=== PATIENT | female | born 1990 | race Hispanic/Latino ===

== ENCOUNTER 2018-04-28 20:57 | Emergency (ER) | payer OTHER ==
[2018-04-28 21:11] VITALS: BP 113/76; PULSE 71; RESP 16; TEMP 98.6; O2SAT 98
[2018-04-28] MEDS ORDERED: Naproxen 500 MG TAB PO STA (22:22)
--- NOTE | 2018-04-28 22:26 | ED PDOC ---
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 Reports no numbness, other injury, knee pain or ankle pain. Has no other complaints. Past Medical History Vital Signs: Last Vital Signs Temp 98.6 F 04/28/18 21:08 Pulse 71 04/28/18 21:08 Resp 16 04/28/18 21:08 BP 113/76 04/28/18 21:08 Pulse Ox 98 04/28/18 21:08 - Family History Family History: States: No Known Family Hx - Home Medications Home Medications: Ambulatory Orders Medication Instructions Recorded Cyclobenzaprine [Cyclobenzaprine 10 mg PO TID PRN #15 tab 04/28/18 HCl] Naproxen 500 mg PO BID PRN #20 tablet 04/28/18 - Allergies Allergies/Adverse Reactions: Allergies Allergy/AdvReac Type Severity Reaction Status Date / Time No Known Allergies Allergy Verified 04/28/18 21:11 Review of Systems Constitutional: Negative for: Fever, Malaise Musculoskeletal: Positive for: Leg Pain. Negative for: Neck Pain, Back Pain Skin: Negative for: Rash, Lesions Physical Exam - Reviewed Vital Signs Reviewed: Yes - Physical Exam Appears: Positive for: Well, Non-toxic, In Acute Distress (+mild painful distress) Skin: Positive for: Normal Color, Warm, Dry Pulses-Dorsalis Pedis (L): 2+ Extremity: Positive for: Normal ROM, Calf Tenderness (+Tenderness to the proximal left calf, Achilles tendon intact left ankle, able to plantarflex and dorsiflex the foot), Capillary Refill (<2 sec). 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 Negative for: Motor/Sensory Deficits - ECG O2 Sat by Pulse Oximetry: 98 Medical Decision Making Medical Decision Making: Plan : - CT LLE w/o contrast - Naprosyn PO - Flexeril PO - Uhcg Uhcg (-) CT LLE w/o contrast : FINDINGS: There is no fracture or malalignment. There is no focal bony lesion. There is mild ankle fat stranding, suggesting edema/inflammation. IMPRESSION: 1. No evidence of an acute bony abnormality. 2. There is mild ankle fat stranding, suggesting edema/inflammation. Note: A CT examination is not sensitive in detecting tendon injury. MRI examination is the study of choice. Dictated and Authenticated by: Aki Ames MD 04/28/2018 11:20 PM Eastern Time ([place] & [place]) Diagnostic results d/w the patient in great detail. Dx of muscle strain d/w the patient. Advised that a tendon rupture was not ruled out today and that she will need to follow up with ortho without fail for outpatient MRI. Orthoglass short leg splint applied by ANDREW VALENZUELA intact post splint application. Instructed on crutch walking. Based on history, exam and diagnostic results plan will be for outpatient follow up. Advised to follow up with ortho referral in 1-2 days without fail. Advised to rest, ice and elevate, to take medication as prescribed. Return to the emergency room at any time for any new or worsening symptoms. Patient states she fully agrees with and understands discharge instructions. States that she agrees with the plan and disposition. Verbalized and repeated discharge instructions and plan. I have given the patient opportunity to ask any additional questions. Disposition - Clinical Impression Clinical Impression: Muscle strain, Pain of left calf - Patient ED Disposition Is Patient to be Admitted: No Counseled Patient/Family Regarding: Studies Performed, Diagnosis, Need For Followup, Rx Given - Disposition Referrals: Hemanth West III, MD [Staff Provider] - Disposition: Routine/Home Disposition Time: 23:40 Condition: STABLE Additional Instructions: Thank you for letting us take care of you today. You were treated for L calf pain, muscle strain. The emergency medical care you received today was directed at your acute symptoms. If you were prescribed any medication, please fill it and take as directed. It may take several days for your symptoms to resolve. Rest, ice and elevate. Return to the Emergency Department if your symptoms worsen, do not improve, or if you have any other problems. Please contact your doctor in 2 days for re-evaluation and follow up / or call one of the physicians/clinics you have been referred to that are listed on the Patient Visit Information form that is included in your discharge packet. Bring any paperwork you were given at discharge with you along with any medications you are taking to your follow up visit. Our treatment cannot replace ongoing medical care by a primary care provider (PCP) outside of the emergency department. Thank you for allowing the [facility] team to be part of your care today. If you had a CT scan: A Radiologist will review the ED reading if any change in treatment is needed we will contact you. Prescriptions: Cyclobenzaprine [Cyclobenzaprine HCl] 10 mg PO TID PRN #15 tab PRN Reason: Muscle Spasm Naproxen 500 mg PO BID PRN #20 tablet PRN Reason: Pain, Moderate (4-7) Instructions: Muscle Strain Forms: [employer] ([place]), [facility] ED School/Work Excuse - PA / MATERIALS ANALYST / Resident Statement MD/DO has reviewed & agrees with the documentation as recorded.
[2018-04-28] MEDS ORDERED: Naproxen 500 MG TAB PO ONE (22:45)
--- NOTE | 2018-04-29 10:09 | CT ---
Date of service: 04/28/2018 PROCEDURE: CT LEFT LOWER EXTREMITY WITHOUT CONTRAST, TIBIA AND FIBULA HISTORY: L calf pain, r/o tendon rupture COMPARISON: None available. TECHNIQUE: Helical CT of the left tibia and fibula has been performed from the distal femur to the proximal ankle. Intravenous contrast was not administered as per referring physician request. Reformatted datasets provided in multiple planes. Radiation dose:Total exam DLP = 523.19 mGy-cm. This CT exam was performed using one or more of the following dose reduction techniques: Automated exposure control, adjustment of the mA and/or kV according to patient size, and/or use of iterative reconstruction technique. FINDINGS: The tibia and fibula are intact without fracture or destructive bony lesion identified. No periosteal changes are identified at this time. Local musculature including the gastrocnemius muscle appears unremarkable in overall density in this noncontrast CT examination, which limits evaluation of the musculature. No suspicious density changes are appreciate throughout the visualized anterior posterior compartment musculature throughout the lower leg and limited medial ankle soft tissue edema is identified which is nonspecific appearing. There is no displaced rupture of the Achilles tendon as imaged. MRI is significantly more sensitive in evaluation of ligaments tendons and remaining soft tissues and should be considered as clinically warranted. IMPRESSION: 1. No fracture, subluxation, dislocation or destructive bony lesion identified throughout the left tibia or fibula. 2. Limited medial ankle soft tissue edema is identified. Note displaced rupture of the Achilles tendon is identified. Further evaluation of the left leg soft tissues should be considered by MRI as clinically warranted, as well as potentially the left ankle. Concordant preliminary report from [facility], 04/28/2018.
== END 2018-04-28 23:45 | disposition home or self-care (01) ==
LOC: H.ER 20:57
DX: M79.605 Pain in left leg (principal)